=== PATIENT | female | born 1990 | race Caucasian/White ===

== ENCOUNTER 2019-03-25 09:03 | Emergency (ER) | payer OTHER ==
[~2019-03-25] VITALS: Ht 160 cm; Wt 114.3 kg
[2019-03-25 09:33] VITALS: Ht 160 cm; Wt 114.3 kg
[2019-03-25 10:30] VITALS: BP 128/71
== END 2019-03-25 10:30 | disposition home or self-care (01) ==
LOC: ED 09:03
DX: H66.92 Otitis media, unspecified, left ear (principal); E03.9 Hypothyroidism, unspecified; E66.01 Morbid (severe) obesity due to excess calories; Z68.41 Body mass index [BMI] 40.0-44.9, adult